=== PATIENT | female | born 1990 ===

== ENCOUNTER → 2023-06-03 10:01 | Outpatient (REF) | payer BC, SELFPAY ==
[2023-06-03 11:12] LABS: Glucose 110 mg/dl (70-99)
[2023-06-03 11:29] LABS: Beta HCG Quantitative < 2.39 mIU/ml; FSH 2.6 mIU/ml; Luteinizing Hormone 4.54 mIU/ml; Prolactin 26.7 ng/ml (3.0-18.6)
[2023-06-03 11:43] LABS: TSH Reflex To Free T4 1.52 uIU/ml (0.47-4.68)
[2023-06-03 11:44] LABS: Estradiol 51.5 pg/ml
[2023-06-03 12:13] LABS: Glycohemoglobin (HgbA1c) 5.6 % (4.0-5.6)
[2023-06-04 17:06] LABS: Insulin, Random 94 uIU/mL
[2023-06-05 02:22] LABS: DHEA Sulfate 339 ug/dL (99-340)
[2023-06-07 13:41] LABS: Free Testosterone 2.8 pg/mL (0.8-7.4); Sex Hormone Binding Globulin 18 nmol/L (25-122); Total Testosterone,Female/Chil 13 ng/dL (9-55)
== END ==
LOC: REG 10:01
PROVIDERS: ATTENDING PHYSICIAN Nurse Practitioner Family
DX: Z31.82 Encounter for Rh incompatibility status (principal)
CPT/HCPCS: 36415; 82627; 82670; 82947; 83001; 83002; 83036; 83525; 84146; 84270; 84402; 84403; 84443; 84702